=== PATIENT | female | born 2005 ===

== ENCOUNTER 2024-09-01 06:32 | Outpatient (REF) | payer BC, SELFPAY ==
--- NOTE | ~2024-09-01 | US_ITS ---
EXAMINATION: US PELVIS CLINICAL INFORMATION: Bilateral lower quadrant pain for 1 month, last menstrual period onset today. COMPARISON: None available. TECHNIQUE: Ultrasound of the pelvis is performed using both transabdominal and transvaginal transducers along with Doppler. Transvaginal imaging is performed due to inadequate visualization transabdominally. FINDINGS: Anteverted uterus measures 6.6 x 2.9 x 3.6 cm. Endometrial thickness is 2 mm. Trace amount of fluid within the endometrial cavity. No significant free fluid. Left ovary measures 2.5 x 1.5 x 1.2 cm, volume 2.3 mL and is unremarkable. Right ovary measures 3.3 x 2.1 x 2.8 cm, volume 9.7 mL. Right ovarian 1.2 x 0.8 x 1.4 cm cyst is likely simple. There is no specific indication for additional imaging at this time. US/US pelvic and transvaginal IMPRESSION: 1. Endometrial thickness is 2 mm. Trace amount of fluid within the endometrial cavity. 2. Right ovarian 1.4 cm cyst is likely simple. There is no specific indication for additional imaging at this time. This study was presented today, September 01, 2024, for interpretation. Stat results provided at this time as requested by referring provider. Electronically signed by: Eduarda Lee MD 09/01/2024 12:44 PM SYLWIA ÁLVAREZ
== END 2024-09-01 06:33 | disposition home or self-care (01) ==
LOC: HO.UMASIMG 06:32
PROVIDERS: Visit Provider Family Medicine
DX: R10.9 Unspecified abdominal pain (principal)
CPT/HCPCS: 76830; 76856